=== PATIENT | female | born 1955 | race Caucasian/White ===

== ENCOUNTER → 2016-12-01 | Outpatient (CLI) | payer OTHER | LOC: FIMAGING 15:33 | PROVIDERS: ATTEND Physician Assistant Medical | DX: Z12.31 Encounter for screening mammogram for malignant neoplasm of breast (principal); Z80.3 Family history of malignant neoplasm of breast | CPT/HCPCS: G0202 ==

== ENCOUNTER → 2016-12-17 | Outpatient (CLI) | payer OTHER | LOC: FIMAGING 11:27 | PROVIDERS: ATTEND Physician Assistant Medical | DX: Z12.39 Encounter for other screening for malignant neoplasm of breast (principal); N63 Unspecified lump in breast | CPT/HCPCS: 76641; G0206 ==

== ENCOUNTER 2017-01-04 19:29 | Emergency (ER) | payer OTHER, MEDICAID ==
[2017-01-04 19:46] VITALS: RESP 16; O2SAT 92
--- NOTE | 2017-01-04 19:48 | EDPHY ---
H & P Stated Complaint: agitation Time Seen by Provider: 01/04/17 19:48 HPI/ROS: CHIEF COMPLAINT: Agitation HISTORY OF PRESENT ILLNESS: The patient is a 61-year-old female with history of cerebral palsy. She is brought to the emergency department tonight after she developed uncontrolled agitation earlier today. The patient does live with her elderly mother. She also is cared for by her brother. The patient apparently was screaming inconsolably earlier today. The patient does have a history of depression and takes Zoloft. She recently was prescribed a short course of sertraline for upper extremity spasticity. The patient stop taking this medication several days ago. There has been no history of fever, cough, vomiting, diarrhea or dysuria. The patient was quite agitated when she was 1st encounter by paramedics. She received 2 mg of IV Versed. She is calmed down quite a bit in the emergency department. She does report that she was a bit tired earlier today. The patient has no history of drug or alcohol use. REVIEW OF SYSTEMS: A comprehensive 10 point review of systems is otherwise negative aside from elements mentioned in the history of present illness. Source: Patient Exam Limitations: No limitations - Personal History Current Tetanus/Diphtheria Vaccine: Unsure Current Tetanus Diphtheria and Acellular Pertussis (TDAP): Unsure - Medical/Surgical History Hx Asthma: No Hx Chronic Respiratory Disease: No Hx Diabetes: No Hx Cardiac Disease: No Hx Renal Disease: No Hx Cirrhosis: No Hx Alcoholism: No Hx HIV/AIDS: No Hx Splenectomy or Spleen Trauma: No Other PMH: cerebral palsy - Family History Significant Family History: No pertinent family hx - Social History Smoking Status: Never smoked - Physical Exam Exam: General Appearance: Elderly female, no acute distress Eyes: Pupils equal and round no pallor or injection ENT, Mouth: Mucous membranes moist Respiratory: There are no retractions, lungs are clear to auscultation Cardiovascular: Regular rate and rhythm Gastrointestinal: Abdomen is soft and nontender, no masses, bowel sounds normal Neurological: Motor exam consistent with known history of cerebral palsy Skin: Warm and dry, no rashes Musculoskeletal: Neck is supple nontender Extremities: symmetrical, full range of motion Psychiatric: Patient is oriented X 3, there is no agitation Constitutional: Initial Vital Signs Heart Rate 117 H 01/04/17 19:43 Respiratory Rate 16 01/04/17 19:43 Blood Pressure 137/96 H 01/04/17 19:43 O2 Sat (%) 92 01/04/17 19:43 O2 Delivery Mode Room Air Allergies/Adverse Reactions: No Known Allergies Allergy (Verified 01/04/17 19:41) Home Medications: Medication Instructions Recorded Amantadine 01/04/17 Zoloft 100mg (*) 01/04/17 Medical Decision Making ED Course/Re-evaluation: The patient presents to the ED after brief episode of agitation. The patient has had some symptoms of depression but is not suicidal homicidal or gravely disabled. The patient did receive an additional IV dose of Ativan. Screening laboratory studies were ordered. There is no evidence of an obvious metabolic abnormality or significant anemia present. The patient has stable vital signs and no clinical evidence of an infection. The patient's urinalysis also demonstrates no evidence of a UTI. The patient was evaluated 3 times by myself over 2.5 hour. Without evidence of any agitation or altered mental status. The patient's brother is comfortable taking her home at this point time. They are interested in pursuing outpatient evaluation of the patient's depression. They have been referred to [facility]. They do understand to return to the ED immediately for fever, abnormal behavior, worsening symptoms or other concerns. Differential Diagnosis: Differential diagnosis considered includes metabolic abnormality, urinary tract infection, sepsis, psychosis, depression, grave disability - Data Points Laboratory Results: Laboratory Results 01/04/17 20:26 01/04/17 20:26 01/04/17 01/04/17 01/04/17 20:55 20:26 20:26 WBC 9.14 10^3/uL 10^3/uL (3.80-9.50) RBC 4.71 10^6/uL 10^6/uL (4.18-5.33) Hgb 12.8 g/dL g/dL (12.6-16.3) Hct 39.7 % % (38.0-47.0) MCV 84.3 fL fL (81.5-99.8) MCH 27.2 pg L pg (27.9-34.1) MCHC 32.2 g/dL L g/dL (32.4-36.7) RDW 13.7 % % (11.5-15.2) Plt Count 167 10^3/uL 10^3/uL (150-400) MPV 11.2 fL fL (8.7-11.7) Neut % (Auto) 79.6 % H % (39.3-74.2) Lymph % (Auto) 12.6 % L % (15.0-45.0) [place] % (Auto) 6.6 % % (4.5-13.0) Eos % (Auto) 0.4 % L % (0.6-7.6) Baso % (Auto) 0.5 % % (0.3-1.7) Nucleat RBC Rel Count 0.0 % % (0.0-0.2) Absolute Neuts (auto) 7.27 10^3/uL H 10^3/uL (1.70-6.50) Absolute Lymphs (auto) 1.15 10^3/uL 10^3/uL (1.00-3.00) Absolute Monos (auto) 0.60 10^3/uL 10^3/uL (0.30-0.80) Absolute Eos (auto) 0.04 10^3/uL 10^3/uL (0.03-0.40) Absolute Basos (auto) 0.05 10^3/uL 10^3/uL (0.02-0.10) Absolute Nucleated RBC 0.00 10^3/uL 10^3/uL (0-0.01) Immature Gran % 0.3 % % (0.0-1.1) Immature Gran # 0.03 10^3/uL 10^3/uL (0.00-0.10) Sodium 144 mEq/L mEq/L (134-144) Potassium 4.1 mEq/L mEq/L (3.5-5.2) Chloride 108 mEq/L mEq/L (97-110) Carbon Dioxide 25 mEq/l mEq/l (22-31) Anion Gap 11 mEq/L mEq/L (8-16) BUN 26 mg/dL H mg/dL (7-23) Creatinine 1.2 mg/dL H mg/dL (0.6-1.0) Estimated GFR 45 Glucose 124 mg/dL H mg/dL (70-100) Calcium 10.0 mg/dL mg/dL (8.5-10.4) Urine Color YELLOW Urine Appearance CLEAR Urine pH 5.0 (5.0-7.5) Ur Specific [place] 1.024 (1.002-1.030) Urine Protein NEGATIVE (NEGATIVE) Urine Ketones NEGATIVE (NEGATIVE) Urine Blood NEGATIVE (NEGATIVE) Urine Nitrate NEGATIVE (NEGATIVE) Urine Bilirubin NEGATIVE (NEGATIVE) Urine Urobilinogen NEGATIVE EU EU (0.2-1.0) Ur Leukocyte Esterase NEGATIVE (NEGATIVE) Urine Glucose NEGATIVE (NEGATIVE) Medications Given: Discontinued Medications Sodium Chloride (Ns) 1,000 mls @ 0 mls/hr IV ONCE ONE PRN Reason: Wide Open Stop: 01/04/17 19:58 Last Admin: 01/04/17 20:30 Dose: 1,000 mls Lorazepam (Ativan Injection) 1 mg IVP EDNOW ONE Stop: 01/04/17 19:59 Last Admin: 01/04/17 20:29 Dose: 1 mg Departure - Departure Disposition: Home, Routine, Self-Care Clinical Impression: Anxiety, Depression, Cerebral palsy Condition: Good Instructions: Depression (ED) Additional Instructions: 1. Please follow-up with the mental health resources provided in the ED today. 2. [facility] does operate a 08/03 psychiatric crisis unit located at [address] [place] [address]. The telephone number for the 24 hour crisis center is [phone]. 3. Please return to the ED if you are feeling suicidal, having thoughts of harming yourself/others or should you feel unsafe or have worsening symptoms. 4. Please return to the ED immediately for any worsening behavior, fever, pain or other worrisome symptoms. 5. Please follow up with your primary care provider as scheduled Referrals: [facility],. [Clinic] - As per Instructions
[2017-01-04] MEDS ORDERED: NS 1,000 ML IV ONE (19:57)
[2017-01-04] MEDS ORDERED: LORazepam 2 MG/ML INJ IVP ONE (19:58)
[2017-01-04 20:35] LABS: % IMMATURE GRANULYOCYTES 0.3 % (0.0-1.1); ABSOLUTE IMMATURE GRANULOCYTES 0.03 10^3/uL (0.00-0.10); ADD DIFF? NO; ADD MORPH? NO; ADD SCAN? NO; ATYPICAL LYMPHOCYTE FLAG 0 (0-99); FRAGMENT RBC FLAG 0 (0-99); HEMATOCRIT 39.7 % (38.0-47.0); HEMOGLOBIN 12.8 g/dL (12.6-16.3); LEFT SHIFT FLG 0 (0-99); LIPEMIA HEMOLYSIS FLAG 80 (0-99); MEAN CELL HEMOGLOBIN 27.2 pg (27.9-34.1); MEAN CELL HEMOGLOBIN CONCENTR. 32.2 g/dL (32.4-36.7); MEAN CELL VOLUME 84.3 fL (81.5-99.8); MEAN PLATELET VOLUME 11.2 fL (8.7-11.7); PLATELET CLUMPS FLAG 10 (0-99); PLATELET COUNT 167 10^3/uL (150-400); RED BLOOD CELL COUNT 4.71 10^6/uL (4.18-5.33); RED CELL DISTRIBUTION WIDTH 13.7 % (11.5-15.2)
[2017-01-04 20:46] LABS: ANION GAP 11 mEq/L (8-16); CARBON DIOXIDE 25 mEq/l (22-31); CHLORIDE 108 mEq/L (97-110); CREATININE 1.2 mg/dL (0.6-1.0); GLOMERULAR FILTRATION RATE 45; GLUCOSE 124 mg/dL (70-100); POTASSIUM 4.1 mEq/L (3.5-5.2); SODIUM 144 mEq/L (134-144)
[2017-01-04 21:36] LABS: COLOR YELLOW; LEUKOCYTE ESTERASE,URINE NEGATIVE (NEGATIVE); NITRITE,URINE NEGATIVE (NEGATIVE)
[2017-01-04 22:22] VITALS: BP 124/86; PULSE 100
== END 2017-01-04 22:28 | disposition home or self-care (01) ==
LOC: EDUNIT#
DX: F41.8 Other specified anxiety disorders (principal); G80.9 Cerebral palsy, unspecified
CPT/HCPCS: 96361; 96374; 99284; J2060